=== PATIENT | male | born 2005 | race Caucasian/White ===

== ENCOUNTER 2024-01-31 21:11 | Emergency (ER) | payer OTHER, MEDICAID, SELFPAY ==
[2024-01-31 21:18] VITALS: BP 126/64; PULSE 91; TEMP 36.6; O2SAT 99; BMI 32.7
--- NOTE | 2024-01-31 21:26 | ED.NAVMDI1 ---
HPI - Nausea/Vomiting/Diarrhea General Chief complaint: Nausea/Vomiting/Diarrhea Stated complaint: Nausea/Vomiting, Diarrhea Time Seen by Provider: 01/31/24 21:15 Source: family Mode of arrival: Wheelchair Limitations: no limitations History of Present Illness HPI Narrative: 18-year-old male presents for nausea vomiting and diarrhea which started at 5:30 PM, about 4 hours ago. No hematemesis or hematochezia. No other family members are ill. He has not had a fever. He states he feels cold. Related Data Previous Rx's ?Medication ?Instructions ?Recorded ondansetron 4 mg disintegrating 4 mg PO Q6H PRN nausea and 01/31/24 tablet vomiting #10 tabs Allergies Allergy/AdvReac Type Severity Reaction Status Date / Time albuterol AdvReac Intermediate Agitated Verified 01/31/24 21:18 Review of Systems ROS Narrative A ten point review of systems is negative except as noted above. PFSH PFSH Social History Little interest or pleasure in doing things: not at all Feeling down, depressed, or hopeless: not at all Exam Narrative Exam Narrative: Nurses note and vital signs reviewed and patient is not hypoxic. General: The patient appears in no apparent distress. Patient is shivering. Skin: Warm, dry, no pallor noted. There is no rash noted. Head: Normocephalic, atraumatic Eye: Normal conjunctiva, no drainage Ears, Nose, Mouth, and Throat: oral mucosa is moist. Nares patent. Cardiovascular: Regular Rate and Rhythm Respiratory: Patient is in no distress, no accessory muscle use, lungs are clear to auscultation, no wheezing, rales or rhonchi Back: non-tender GI: Soft and nontender Musculoskeletal: The patient has no evidence of calf tenderness, no pitting edema, symmetrical pulses noted bilaterally Neurological: A&O, normal speech Psychiatric: Cooperative Constitutional Vital Signs, click to edit/add: Last Vital Signs Temp 97.9 F 01/31/24 21:18 Pulse 91 H 01/31/24 21:18 Resp 18 01/31/24 21:18 BP 126/64 01/31/24 21:18 Pulse Ox 99 01/31/24 21:18 O2 Del Method Room Air 01/31/24 21:18 Course Vital Signs Vital signs: Vital Signs Temperature 97.9 F 01/31/24 21:18 Pulse Rate 91 H 10/11/24 21:18 Respiratory Rate 18 01/31/24 21:18 Blood Pressure 126/64 01/31/24 21:18 Pulse Oximetry 99 01/31/24 21:18 Oxygen Delivery Method Room Air 01/31/24 21:18 Temperature 97.9 F 01/31/24 21:18 Pulse Rate 91 H 01/31/24 21:18 Respiratory Rate 18 01/31/24 21:18 Blood Pressure 126/64 01/31/24 21:18 Pulse Oximetry 99 01/31/24 21:18 Oxygen Delivery Method Room Air 01/31/24 21:18 MDM - Nausea/Vomiting/Diarrhea MDM Narrative Medical decision making narrative: The patient is feeling much better after IV fluids and Zofran. He is tolerating p.o. liquids. My clinical impression is that he has viral gastroenteritis. Findings are discussed with the patient and his family. Repeat exam at 10:20 PM shows no abdominal tenderness. Differential Diagnosis Differential diagnosis: Likely food poisoning, gastroenteritis and dehydration Lab Data Attestation: I reviewed the patient's lab results. Labs: Lab Results 01/31/24 Range/Units 21:25 WBC 17.2 H (4.0-11.0) 10^3/uL RBC 5.42 (4.70-6.10) 10^6/uL Hgb 15.9 (14.0-18.0) g/dL Hct 45.5 (42.0-54.0) % MCV 83.9 (80.0-94.0) fL MCH 29.3 (25.9-34.0) pg MCHC 34.9 (29.9-35.2) g/dL RDW 11.5 (11.0-15.0) % Plt Count 228 (150-450) 10^3/uL MPV 9.2 L (9.5-13.5) fL Seg Neuts % (Manual) 84.0 H (43.0-75.0) Band Neutrophils % 1.0 (0-5) % Lymphocytes % (Manual) 0.0 L (20.5-60.0) % Atypical Lymphs % (Man) 11.0 % Monocytes % (Manual) 4.0 (1.7-12.0) % Eosinophils % (Manual) 0.0 L (0.9-7.0) % Basophils % (Manual) 0.0 L (0.2-2.0) % Neutrophils # (Manual) 14.44 H (1.4-6.5) 10^3/uL Band Neutrophils # 0.2 (0.0-0.3) 10^3/uL Lymphocytes # (Manual) 0.00 L (1.20-3.80) 10^3/uL Abs Atypical Lymphs Man 1.89 Monocytes # (Manual) 0.68 (0.30-0.80) 10^3/uL Eosinophils # (Manual) 0.00 (0.00-0.70) 10^3/uL Basophils # (Manual) 0.00 (0.00-0.10) 10^3/uL Hypersegmented Neuts 1+ Sodium 140 (136-145) mmol/L Potassium 3.8 (3.5-5.1) mmol/L Chloride 105 (98-107) mmol/L Carbon Dioxide 27.2 (21.0-32.0) mmol/L Anion Gap 11.6 BUN 22.0 H (7.0-18.0) mg/dL Creatinine 1.14 (0.70-1.30) mg/dL Est GFR ( Amer) >60 (>=60 mL/min/1.73m^2) Est GFR (Non-Af Amer) >60 (>=60 mL/min/1.73m^2) BUN/Creatinine Ratio 19.3 Glucose 136 H (74-106) mg/dL Calcium 8.9 (8.5-10.1) mg/dL Discharge Plan Discharge Chief Complaint: Nausea/Vomiting/Diarrhea Clinical Impression: Nausea, vomiting, and diarrhea Patient Disposition: Home, Self-Care Time of Disposition Decision: 22:37 Condition: Good Mode of Transportation: Private Vehicle Prescriptions / Home Meds: New ondansetron 4 mg tablet,disintegrating 4 mg PO Q6H PRN (Reason: nausea and vomiting) Qty: 10 0RF Print Language: Telugu Instructions: Acute Nausea and Vomiting (ED), Acute Diarrhea (ED) Referrals: Physician,Non-Staff, MD [Primary Care Provider] - 1 week
[2024-01-31 21:36] LABS: Hematocrit 45.5 % (42.0-54.0); Hemoglobin 15.9 g/dL (14.0-18.0); Mean Corpuscular HGB Conc 34.9 g/dL (29.9-35.2); Mean Corpuscular Hemoglobin 29.3 pg (25.9-34.0); Mean Corpuscular Volume 83.9 fL (80.0-94.0); Mean Platelet Volume 9.2 fL (9.5-13.5); Platelet Count 228 10^3/uL (150-450); Red Blood Count 5.42 10^6/uL (4.70-6.10); Red Cell Distribution Width 11.5 % (11.0-15.0); White Blood Count 17.2 10^3/uL (4.0-11.0)
[2024-01-31] MEDS: ONDANSETRON PF 4 MG/2 ML VIAL IV (21:38)
[2024-01-31] MEDS: 0.9 % SODIUM CHLORIDE 1,000 ML 1000 ML IV (21:38)
[2024-01-31 21:47] LABS: Anion Gap 11.6; BUN Creatinine Ratio 19.3; Calcium 8.9 mg/dL (8.5-10.1); Carbon Dioxide 27.2 mmol/L (21.0-32.0); Chloride 105 mmol/L (98-107); Estimated GFR (African America >60 (>=60 mL/min/1.73m^2); Estimated GFR (Non-African Ame >60 (>=60 mL/min/1.73m^2); Glucose 136 mg/dL (74-106); Potassium 3.8 mmol/L (3.5-5.1); Sodium 140 mmol/L (136-145)
[2024-01-31 21:54] LABS: Band Neutrophils Absolute 0.2 10^3/uL (0.0-0.3); Segmented Neut Absolute Manual 14.44 10^3/uL (1.4-6.5)
[2024-01-31 21:55] LABS: Atypical Lymphocytes Abs Man 1.89; Hypersegmented Neutrophils 1+; Monocytes Absolute Manual 0.68 10^3/uL (0.30-0.80)
== END 2024-01-31 22:51 | disposition home or self-care (01) ==
PROVIDERS: Emergency Provider Emergency Medicine
DX: R11.2 Nausea with vomiting, unspecified (principal); R19.7 Diarrhea, unspecified
CPT/HCPCS: 36415; 80048; 85007; 85027; 96361; 96374; 99284; J2405